=== PATIENT | female | born 1970 | race Hispanic/Latino ===

== ENCOUNTER → 2024-05-22 11:11 | Outpatient (REF) | payer OTHER, SELFPAY ==
[2024-05-22 15:46] LABS: Mumps Virus IgG Positive; Rubeola (Measles) IgG Negative; Varicella Zoster IgG (VZV) Positive
[2024-05-22 18:25] LABS: Rubella Positive
[2024-05-24 10:41] LABS: Quantiferon Mitogen minus NIL 9.99 IU/mL; Quantiferon NIL 0.01 IU/mL; Quantiferon Plus TB2 minus NIL 0.01 IU/mL (<=0.34); Quantiferon TB Gold Plus Negative (Negative)
== END ==
LOC: REG 11:11
PROVIDERS: ATTENDING PHYSICIAN Nurse Practitioner
DX: Z23 Encounter for immunization (principal)
CPT/HCPCS: 36415; 86480; 86735; 86762; 86765; 86787